=== PATIENT | male | born 1990 | race Hispanic/Latino ===

== ENCOUNTER 2017-10-01 05:44 | Emergency (ER) | payer OTHER ==
[2017-10-01 06:02] VITALS: BP 141/82; PULSE 87; TEMP 97.8; O2SAT 99
[2017-10-01] MEDS ORDERED: Albuterol-Ipratrop 3 mg / 0.5 (3 ml) UD INH STA (06:25)
[2017-10-01] MEDS ORDERED: Albuterol-Ipratrop 3 mg / 0.5 (3 ml) UD ONE (06:33)
--- NOTE | 2017-10-01 07:05 | ED PDOC ---
HPI: SOB/CHF/COPD Time Seen by Provider: 10/01/17 06:06 Chief Complaint (Nursing): Shortness Of Breath Chief Complaint (Provider): Shortness Of Breath History Per: Patient History/Exam Limitations: no limitations Additional Complaint(s): 27 y/o male presents to the ED complaining of shortness of breath, sore throat and congestion. Patient went to urgent care on for fever, cough, congestion and was prescribed zithromax, tamiflu proair and cough medications. States that she was feeling better but earlier this morning started feeling worse. Temperature was 99 at home and she has been taking proair without relief. Past Medical History Reviewed: Historical Data, Nursing Documentation, Vital Signs Vital Signs: Last Vital Signs Temp 97.8 F 10/01/17 06:00 Pulse 87 10/01/17 06:00 Resp 16 10/01/17 06:00 BP 141/82 10/01/17 06:00 Pulse Ox 99 10/01/17 07:07 - Medical History PMH: No Chronic Diseases - Surgical History Surgical History: No Surg Hx - Family History Family History: States: Unknown Family Hx - Allergies Allergies/Adverse Reactions: Allergies Allergy/AdvReac Type Severity Reaction Status Date / Time No Known Allergies Allergy Verified 10/01/17 06:02 Review of Systems ROS Statement: Except As Marked, All Systems Reviewed And Found Negative (As per HPI,otherwise negative) ENT: Positive for: Nose Congestion, Other (Sore throat) Respiratory: Positive for: Shortness of Breath Physical Exam - Reviewed Nursing Documentation Reviewed: Yes Vital Signs Reviewed: Yes - Physical Exam Appears: Positive for: Well, Non-toxic, No Acute Distress Head Exam: Positive for: ATRAUMATIC, NORMAL INSPECTION, NORMOCEPHALIC Skin: Positive for: Normal Color, Warm, DRY Eye Exam: Positive for: EOMI, Normal appearance, PERRL ENT: Positive for: Other (minor lymphadenopathy) Neck: Positive for: Normal, Painless ROM, Supple Cardiovascular/Chest: Positive for: Regular Rate, Rhythm. Negative for: Murmur Respiratory: Positive for: Normal Breath Sounds. Negative for: Accessory Muscle Use, Respiratory Distress Gastrointestinal/Abdominal: Positive for: Normal Exam, Bowel Sounds, Soft Back: Positive for: Normal Inspection Extremity: Positive for: Normal ROM. Negative for: Deformity Neurologic/Psych: Positive for: Alert, Oriented (x3) - ECG O2 Sat by Pulse Oximetry: 99 (RA) Pulse Ox Interpretation: Normal Medical Decision Making Medical Decision Making: Time: 06:25 Initial Impression: Upper respiratory infection Plan: Chest x-ray Albuterol/Ipratropium 3ml INH Throat culture Peak flow pre/post tx Reevaluation [address] Verma pending CXR and ree-nadeen. Scribe Attestation: Documented by Fiorella Briceño acting as a scribe for Trent Rocha MD. Scribe Attestation: All medical record entries made by the Scribe were at my direction and personally dictated by me. I have reviewed the chart and agree that the record accurately reflects my personal performance of the history, physical exam, medical decision making, and the department course for this patient. I have also personally directed, reviewed, and agree with the discharge instructions and disposition. Disposition - Clinical Impression Clinical Impression: Shortness of breath - Patient ED Disposition Is Patient to be Admitted: Transfer of Care - Disposition Disposition: Transfer of Care Disposition Time: 07:00 Condition: STABLE Forms: [employer] (Danish) Patient Signed Over To: Faisal Verma Handoff Comments: pending CXR and re-eval
[2017-10-01 07:24] VITALS: RESP 23
--- NOTE | 2017-10-01 08:17 | ED PDOC ---
- ECG O2 Sat by Pulse Oximetry: 99 (RA) Pulse Ox Interpretation: Normal - Radiology X-Ray: Interpreted by Me, Viewed By Me X-Ray Interpretation: No Acute Disease Medical Decision Making Medical Decision Making: Patient signed out to provider at 7am from Dr. Rocha pending chest xray. Documented by Maria Isabel Davis acting as a scribe for Faisal Verma MD. All medical record entries made by the Scribe were at my direction and personally dictated by me. I have reviewed the chart and agree that the record accurately reflects my personal performance of the history, physical exam, medical decision making, and the department course for this patient. I have also personally directed, reviewed, and agree with the discharge instructions and disposition. Disposition Doctor Will See Patient In The: Office Counseled Patient/Family Regarding: Studies Performed, Diagnosis, Need For Followup - Clinical Impression Clinical Impression: Shortness of breath, Bronchitis, Laryngitis - POA Present On Arrival: None - Disposition Referrals: [facility] [Outside] Disposition: Routine/Home Disposition Time: 08:17 Condition: GOOD Additional Instructions: Follow up with your PCP in 2-3 days. Instructions: Acute Bronchitis, Laryngitis
--- NOTE | 2017-10-01 09:29 | RAD ---
HISTORY: Shortness of breath COMPARISON: Comparison chest dated 09/19/2011 TECHNIQUE: Chest PA and lateral FINDINGS: LUNGS: No active pulmonary disease. PLEURA: No significant pleural effusion identified. No pneumothorax apparent. CARDIOVASCULAR: Normal. OSSEOUS STRUCTURES: No significant abnormalities. VISUALIZED UPPER ABDOMEN: Normal. OTHER FINDINGS: None. IMPRESSION: No active disease.
== END 2017-10-01 08:29 | disposition home or self-care (01) ==
LOC: H.ER 05:44
DX: R06.02 Shortness of breath (principal); J44.9 Chronic obstructive pulmonary disease, unspecified; J04.0 Acute laryngitis